=== PATIENT | female | born 2000 ===

== ENCOUNTER 2022-04-22 17:32 | Emergency (ER) | payer MEDICAID | END 2022-04-22 22:39 | disposition home or self-care (01) | LOC: MW.ED 17:32 | DX: N63.10 Unspecified lump in the right breast, unspecified quadrant (principal); N63.20 Unspecified lump in the left breast, unspecified quadrant; Z88.5 Allergy status to narcotic agent; Z88.0 Allergy status to penicillin | CPT/HCPCS: 81003; 81025; 99282; 99283 ==